=== PATIENT | female | born 1995 | race Hispanic/Latino ===

== ENCOUNTER 2017-01-08 14:52 | Emergency (ER) | payer OTHER ==
[2017-01-08 14:57] VITALS: O2SAT 100
--- NOTE | 2017-01-08 15:34 | ED PDOC ---
HPI: Abdomen Time Seen by Provider: 01/08/17 15:17 Chief Complaint (Nursing): Abdominal Pain Chief Complaint (Provider): Abdominal Pain History Per: Patient History/Exam Limitations: no limitations Onset/Duration Of Symptoms: Days Current Symptoms Are (Timing): Still Present Severity: Moderate Location Of Pain/Discomfort: Suprapubic Associated Symptoms: denies: Fever, Nausea, Vomiting, Diarrhea, Back Pain, Constipation, Urinary Symptoms Exacerbating Factors: None Alleviating Factors: None Additional Complaint(s): Patient is a 21 year old female who presents to ED for evaluation of lower abdominal pain with vaginal bleeding. Patient reports that her cramps began a littler over a week ago with her menstrual period but that ended and the cramps continued. Patient notes that vaginal bleeding returned 2 days ago, light at first but became more heavy today. Denies weakness, SOB, palpations or back pain Abnormal Vaginal Bleeding: Yes Last Menstral Period: 12/24/16 Past Medical History Reviewed: Historical Data, Nursing Documentation, Vital Signs Vital Signs: Last Vital Signs Temp 98.2 F 01/08/17 14:56 Pulse 77 01/08/17 14:56 Resp 18 01/08/17 14:56 BP 109/72 01/08/17 14:56 Pulse Ox 100 01/08/17 19:42 - Medical History PMH: Anxiety, Depression, Post Traumatic Stress Disorder - Surgical History Surgical History: Tonsillectomy - Family History Family History: States: No Known Family Hx - Living Arrangements Living Arrangements: With Family - Home Medications Home Medications: Ambulatory Orders Medication Instructions Recorded No Known Home Med 01/08/17 - Allergies Allergies/Adverse Reactions: Allergies Allergy/AdvReac Type Severity Reaction Status Date / Time No Known Allergies Allergy Verified 01/08/17 14:57 Review of Systems ROS Statement: Except As Marked, All Systems Reviewed And Found Negative Constitutional: Negative for: Fever, Weakness Cardiovascular: Negative for: Palpitations Gastrointestinal: Positive for: Abdominal Pain. Negative for: Nausea, Vomiting , Diarrhea Genitourinary Female: Positive for: Vaginal Bleeding. Negative for: Dysuria, Hematuria, Vaginal Discharge, Rash Neurological: Negative for: Weakness, Numbness Physical Exam - Reviewed Nursing Documentation Reviewed: Yes Vital Signs Reviewed: Yes - Physical Exam Appears: Positive for: Non-toxic, No Acute Distress Skin: Positive for: Normal Color, Warm. Negative for: Pallor Eye Exam: Positive for: Normal appearance Neck: Positive for: Normal, Painless ROM Cardiovascular/Chest: Positive for: Regular Rate, Rhythm. Negative for: Murmur Respiratory: Positive for: Normal Breath Sounds. Negative for: Respiratory Distress Gastrointestinal/Abdominal: Positive for: Soft, Tenderness (suprapubic ). Negative for: Distended, Guarding, Rebound Back: Positive for: Normal Inspection. Negative for: L CVA Tenderness, R CVA Tenderness Extremity: Positive for: Normal ROM Neurologic/Psych: Positive for: Alert, Oriented - Laboratory Results Result Diagrams: 01/08/17 16:23 01/08/17 16:23 - ECG O2 Sat by Pulse Oximetry: 100 (RA) Pulse Ox Interpretation: Normal - CT Scan/US Abdomen/Pelvis/Transvaginal US Other Rad Studies (CT/US): Read By Radiologist, Radiology Report Reviewed Other Rad Interpretation: Small b/l simple para ovarian cysts. Trace endometrial fluid, nonspecific. - Progress Re-evaluation Time: 20:33 Condition: Re-examined, Improved Medical Decision Making Medical Decision Making: Time: 1529 Initial impression: DUB, ovarian cyst r/o complication Initial plan: --Abdomen/Pelvis/Transvaginal US -- BMP -- CBC -- PT/PT -- U/S 18:55 Abdomen/Pelvis/Transvaginal US report reviewed: FINDINGS: UTERUS: Measures 6.3 x 3.8 x 4.5 cm. Normal in size and appearance. No fibroid or other mass lesion seen. ENDOMETRIUM: Measures 1-2 mm in single wall thickness. Trace endometrial fluid. CERVIX: No cervical abnormality identified. RIGHT OVARY: Measures 3.9 x 2.4 x 2.5 cm. No solid mass. Normal flow. 1.1 cm para ovarian simple cyst. LEFT OVARY: Measures 4.0 x 1.8 x 2.4 cm. No solid mass. Normal flow. 4 mm simple para ovarian cyst. FREE FLUID: Trace OTHER FINDINGS: None. IMPRESSION: Small bilateral simple para ovarian cysts. Trace endometrial fluid, nonspecific. No additional abnormality. Scribe Attestation: Documented by Unique Raymond and Sosa Ling acting as a scribe for Anival Cowart MD MD Scribe Attestation: All medical record entries made by the Scribe were at my direction and personally dictated by me. I have reviewed the chart and agree that the record accurately reflects my personal performance of the history, physical exam, medical decision making, and the department course for this patient. I have also personally directed, reviewed, and agree with the discharge instructions and disposition. Disposition - Clinical Impression Clinical Impression: Cyst of ovary, Abdominal pain in female - Patient ED Disposition Is Patient to be Admitted: No Doctor Will See Patient In The: Office Counseled Patient/Family Regarding: Studies Performed, Diagnosis, Need For Followup - Disposition Referrals: [facility] [Outside] Disposition: Routine/Home Disposition Time: 20:34 Condition: GOOD Additional Instructions: Take advil for pain. Return for worsening. Follow up with your PCP in 2-3 days. Instructions: Ovarian Cyst (ED)
[2017-01-08 16:42] LABS: BLOOD UREA NITROGEN 10 mg/dl (7-17); CALCIUM 8.8 mg/dL (8.4-10.2); CARBON DIOXIDE 22 mmol/L (22-30); CHLORIDE 108 mmol/L (98-107); GFR AFRICAN-AMERICAN > 60; GLUCOSE,RANDOM 86 mg/dL (65-105); POTASSIUM 4.1 MMOL/L (3.6-5.0); SODIUM 143 mmol/l (132-148)
[2017-01-08 16:43] LABS: PARTIAL THROMBOPLASTIN TIME 28.6 SECONDS (23.3-32.5)
[2017-01-08 16:44] LABS: BASO % 0.3 % (0.0-2.0); LYMPH # 1.6 K/uL (1.0-4.3); LYMPH % 38.8 % (20.0-40.0); MEAN CELL VOLUME 90.2 fl (81.0-99.0); MEAN CORPUSCULAR HEMOGLOBIN 29.7 pg (27.0-31.0); MEAN CORPUSCULAR HGB CONC 32.9 g/dL (33.0-37.0); MONO # 0.3 K/uL (0.0-0.8); MONO % 8.3 % (0.0-10.0); NEUT # 2.2 K/uL (1.8-7.0); NEUT % 51.6 % (50.0-75.0); RED CELL DISTRIBUTION WIDTH 14.2 % (11.5-14.5); WHITE BLOOD COUNT 4.2 K/uL (4.8-10.8)
--- NOTE | 2017-01-08 18:56 | US ---
HISTORY: lower abd pain and vaginal bleeding COMPARISON: None available. TECHNIQUE: Transabdominal and transvaginal FINDINGS: UTERUS: Measures 6.3 x 3.8 x 4.5 cm. Normal in size and appearance. No fibroid or other mass lesion seen. ENDOMETRIUM: Measures 1-2 mm in single wall thickness. Trace endometrial fluid. CERVIX: No cervical abnormality identified. RIGHT OVARY: Measures 3.9 x 2.4 x 2.5 cm. No solid mass. Normal flow. 1.1 cm para ovarian simple cyst. LEFT OVARY: Measures 4.0 x 1.8 x 2.4 cm. No solid mass. Normal flow. 4 mm simple para ovarian cyst. FREE FLUID: Trace OTHER FINDINGS: None. IMPRESSION: Small bilateral simple para ovarian cysts. Trace endometrial fluid, nonspecific. No additional abnormality.
[2017-01-08 20:44] VITALS: BP 125/80; PULSE 75; RESP 16; TEMP 97.9
== END 2017-01-08 20:45 | disposition home or self-care (01) ==
LOC: H.ER 14:52
DX: N83.201 Unspecified ovarian cyst, right side (principal); F43.10 Post-traumatic stress disorder, unspecified